=== PATIENT | male | born 1980 | race Two or more races ===

== ENCOUNTER 2019-03-25 00:22 | Emergency (ER) | payer SELFPAY | END 2019-03-25 02:30 | disposition left against medical advice (07) | LOC: ER 00:22 | DX: M25.511 Pain in right shoulder (principal); Z53.21 Procedure and treatment not carried out due to patient leaving prior to being seen by health care provider ==

== ENCOUNTER 2019-07-26 18:56 | Emergency (ER) | payer SELFPAY ==
[~2019-07-26] VITALS: Ht 177.8 cm; Wt 69.0 kg
[2019-07-26] MEDS ORDERED: KETOROLAC 60MG/2ML VIAL IM ONE (20:30)
[2019-07-26] MEDS ORDERED: TRAMADOL 50MG TABLET PO ONE (20:30)
[2019-07-26 21:30] VITALS: BP 114/56
== END 2019-07-26 23:30 | disposition home or self-care (01) ==
LOC: ER 18:56
DX: S39.82XA Other specified injuries of lower back, initial encounter (principal); F10.10 Alcohol abuse, uncomplicated; Y90.2 Blood alcohol level of 40-59 mg/100 ml; V03.10XA Pedestrian on foot injured in collision with car, pick-up truck or van in traffic accident, initial encounter; Y93.89 Activity, other specified; Y92.488 Other paved roadways as the place of occurrence of the external cause
CPT/HCPCS: 36415; 72220; 80320; 96372; 99284; J1885; Z7610; G0480

== ENCOUNTER 2021-03-12 21:41 | Emergency (ER) | payer OTHER ==
[~2021-03-12] VITALS: Ht 182.9 cm; Wt 91.0 kg
[~2021-03-12 21:41] MED LIST: AMLO5TAB88 MT
[2021-03-12 22:28] LABS: BASOPHILS % 0.6 % (0.0-2.0); HEMATOCRIT. 40.6 % (42.0-52.0); HEMOGLOBIN. 14.1 g/dL (14.0-18.0); LYMPHOCYTES % 22.9 % (20.0-50.0); MEAN CORPUSCULAR HEMOGLOBIN 31.7 pg (28.0-32.0); MEAN CORPUSCULAR VOLUME 91.3 fL (80.0-94.0); MEAN PLATELET VOLUME 7.9 fl (7.4-10.4); MONOCYTES % 10.2 % (2.0-8.0); NEUTROPHILS % 64.3 % (40.0-76.0); PLATELET 306 x1000/uL (130-400); RED BLOOD CELL COUNT 4.45 mill/uL (4.7-6.1); RED CELL DISTRIBUTION WIDTH 12.5 % (11.6-14.6)
[2021-03-12 22:36] LABS: CHLORIDE 103 mEq/L (98-107)
[2021-03-12 22:42] LABS: ETHANOL BLOOD < 10 mg/dL
[2021-03-12] MEDS ORDERED: HALOPERIDOL LACTATE 5MG/ML VIAL IM ONE (22:45)
[2021-03-12] MEDS ORDERED: LORAZEPAM 2MG/ML CPJ IM ONE (22:45)
[2021-03-13 03:29] VITALS: BP 127/72
[2021-03-13] MEDS ORDERED: IBUP-2028 MT (14:02)
== END 2021-03-13 04:59 | disposition home or self-care (01) ==
LOC: ER 21:41
DX: T50.991A Poisoning by other drugs, medicaments and biological substances, accidental (unintentional), initial encounter (principal); R00.0 Tachycardia, unspecified; R45.1 Restlessness and agitation; F15.10 Other stimulant abuse, uncomplicated; Z87.891 Personal history of nicotine dependence; Z79.899 Other long term (current) drug therapy; Y92.89 Other specified places as the place of occurrence of the external cause
CPT/HCPCS: 36415; 80053; 80307; 80320; 80329; 85025; 93005; 96372; 99285; J1630; J2060; G0480

== ENCOUNTER 2021-03-13 11:16 | Emergency (ER) | payer OTHER ==
[~2021-03-13] VITALS: Ht 185.4 cm; Wt 87.0 kg
[2021-03-13 12:11] LABS: BASOPHILS % 0.3 % (0.0-2.0); EOSINOPHILS % 1.9 % (0.0-5.0); HEMATOCRIT. 39.3 % (42.0-52.0); HEMOGLOBIN. 13.9 g/dL (14.0-18.0); LYMPHOCYTES % 21.2 % (20.0-50.0); MEAN CORPUSCULAR HEMOGLOBIN 32.1 pg (28.0-32.0); MEAN CORPUSCULAR VOLUME 90.7 fL (80.0-94.0); MEAN PLATELET VOLUME 7.9 fl (7.4-10.4); MONOCYTES % 8.9 % (2.0-8.0); NEUTROPHILS % 67.7 % (40.0-76.0); PLATELET 329 x1000/uL (130-400); RED BLOOD CELL COUNT 4.33 mill/uL (4.7-6.1); RED CELL DISTRIBUTION WIDTH 12.7 % (11.6-14.6)
[2021-03-13 12:13] LABS: CHLORIDE 106 mEq/L (98-107)
[2021-03-13 12:17] LABS: ETHANOL BLOOD < 10 mg/dL
[2021-03-13 12:24] LABS: CLARITY URINE CLEAR (CLEAR); COLOR URINE YELLOW (YELLOW); KETONES URINE TRACE (NEGATIVE); LEUKOCYTE ESTERASE URINE NEGATIVE (NEGATIVE); NITRITE URINE NEGATIVE (NEGATIVE); OCCULT BLOOD URINE NEGATIVE (NEGATIVE); PROTEIN URINE NEGATIVE (NEGATIVE); SPECIFIC GRAVITY URINE 1.024 (1.005-1.030); UROBILINOGEN URINE 0.2 E.U./dL (0.2-1.0)
[2021-03-13 12:35] LABS: *AMPHETAMINES SCREEN URINE PRESUMTIVE POSITIVE (NEGATIVE); *BARBITURATES SCREEN URINE NEGATIVE (NEGATIVE); *COCAINE SCREEN URINE NEGATIVE (NEGATIVE); CANNABINOID URINE SCREEN PRESUMTIVE POSITIVE (NEGATIVE); METHADONE URINE SCREEN NEGATIVE (NEGATIVE); OPIATES URINE SCREEN NEGATIVE (NEGATIVE); PHENCYCLIDINE URINE SCREEN PRESUMTIVE POSITIVE (NEGATIVE)
[2021-03-13 12:38] LABS: *BENZODIAZEPINES SCREEN URINE NEGATIVE (NEGATIVE)
[2021-03-13] MEDS ORDERED: IBUP-2028 MT (14:02)
[2021-03-13] MEDS ORDERED: IBUPROFEN 400MG TABLET PO ONE (14:15)
[2021-03-13 16:21] VITALS: BP 122/76
== END 2021-03-13 16:22 | disposition left against medical advice (07) ==
LOC: ER 11:16
DX: S60.512A Abrasion of left hand, initial encounter (principal); S60.511A Abrasion of right hand, initial encounter; F12.10 Cannabis abuse, uncomplicated; F15.10 Other stimulant abuse, uncomplicated; R07.89 Other chest pain; R00.0 Tachycardia, unspecified; F17.290 Nicotine dependence, other tobacco product, uncomplicated; Z59.0 Homelessness; Z79.899 Other long term (current) drug therapy; Y08.89XA Assault by other specified means, initial encounter; Y93.89 Activity, other specified; Y92.89 Other specified places as the place of occurrence of the external cause; Y99.8 Other external cause status
CPT/HCPCS: 36415; 71045; 80053; 80305; 80320; 81003; 85025; 93005; 99285; 99406; G0480

== ENCOUNTER 2021-03-13 18:33 | Emergency (ER) | payer OTHER ==
[~2021-03-13] VITALS: Ht 182.9 cm; Wt 79.0 kg
[~2021-03-13 18:33] MED LIST changes: +IBUP-2028 MT
[2021-03-13 18:34] VITALS: BP 148/103
== END 2021-03-13 18:40 | disposition home or self-care (01) ==
LOC: ER 18:33
DX: M79.18 Myalgia, other site (principal); F12.10 Cannabis abuse, uncomplicated; F15.10 Other stimulant abuse, uncomplicated; F32.9 Major depressive disorder, single episode, unspecified
CPT/HCPCS: 99283

== ENCOUNTER 2021-03-16 14:07 | Emergency (ER) | payer OTHER ==
[~2021-03-16] VITALS: Ht 180.3 cm; Wt 91.0 kg
[2021-03-16 14:09] VITALS: BP 142/78
== END 2021-03-16 14:24 | disposition home or self-care (01) ==
LOC: ER 14:07
DX: R53.1 Weakness (principal); R42 Dizziness and giddiness; Z86.59 Personal history of other mental and behavioral disorders
CPT/HCPCS: 99283

== ENCOUNTER 2021-03-28 16:08 | Emergency (ER) | payer OTHER ==
[~2021-03-28] VITALS: Ht 188 cm; Wt 100.0 kg
[2021-03-28] MEDS ORDERED: KETOROLAC 30MG/ML VIAL IV STA (17:42)
[2021-03-28] MEDS ORDERED: SODIUM CHLORIDE 0.9% 1,000 ML IV ONE (17:45)
[2021-03-28] MEDS ORDERED: LORAZEPAM 2MG/ML CPJ IM STA (18:07)
[2021-03-28 19:23] LABS: BASOPHILS % 1.1 % (0.0-2.0); EOSINOPHILS % 3.4 % (0.0-5.0); HEMATOCRIT. 40.6 % (42.0-52.0); HEMOGLOBIN. 13.9 g/dL (14.0-18.0); MEAN CORPUSCULAR HEMOGLOBIN 31.2 pg (28.0-32.0); MEAN CORPUSCULAR VOLUME 91.3 fL (80.0-94.0); MEAN PLATELET VOLUME 8.5 fl (7.4-10.4); MONOCYTES % 8.1 % (2.0-8.0); NEUTROPHILS % 58.4 % (40.0-76.0); PLATELET 310 x1000/uL (130-400); RED BLOOD CELL COUNT 4.45 mill/uL (4.7-6.1); RED CELL DISTRIBUTION WIDTH 12.9 % (11.6-14.6)
[2021-03-28 19:27] LABS: CHLORIDE 105 mEq/L (98-107)
[2021-03-28 19:31] LABS: ETHANOL BLOOD < 10 mg/dL
[2021-03-28] MEDS ORDERED: IOHEXOL-300 100 ML BOTTLE ONE (19:56)
[2021-03-28 20:50] LABS: *AMPHETAMINES SCREEN URINE PRESUMTIVE POSITIVE (NEGATIVE); *BARBITURATES SCREEN URINE NEGATIVE (NEGATIVE); *BENZODIAZEPINES SCREEN URINE NEGATIVE (NEGATIVE); *COCAINE SCREEN URINE NEGATIVE (NEGATIVE); CANNABINOID URINE SCREEN PRESUMTIVE POSITIVE (NEGATIVE); OPIATES URINE SCREEN NEGATIVE (NEGATIVE); PHENCYCLIDINE URINE SCREEN PRESUMTIVE POSITIVE (NEGATIVE)
[2021-03-28 20:51] LABS: METHADONE URINE SCREEN NEGATIVE (NEGATIVE)
[2021-03-29 02:00] VITALS: BP 141/79
== END 2021-03-29 02:48 | disposition short-term general hospital (02) ==
LOC: ER 16:08
DX: F10.129 Alcohol abuse with intoxication, unspecified (principal); F16.10 Hallucinogen abuse, uncomplicated; S32.038A Other fracture of third lumbar vertebra, initial encounter for closed fracture; S22.088 Other fracture of T11-T12 vertebra; Y90.0 Blood alcohol level of less than 20 mg/100 ml; F15.10 Other stimulant abuse, uncomplicated; Y04.2XXA Assault by strike against or bumped into by another person, initial encounter; Y93.89 Activity, other specified; Y92.89 Other specified places as the place of occurrence of the external cause
CPT/HCPCS: 36415; 70450; 70486; 71045; 71260; 74177; 80053; 80305; 80320; 83690; 85025; 93005; 96361; 96372; 96374; 99285; J1885; J2060; J7030; Q9967; Z7610; G0480

== ENCOUNTER 2021-06-11 04:46 | Emergency (ER) | payer OTHER | END 2021-06-11 05:42 | disposition left against medical advice (07) | LOC: ER 04:46 | DX: Z53.21 Procedure and treatment not carried out due to patient leaving prior to being seen by health care provider (principal) ==

== ENCOUNTER 2021-07-04 02:08 | Emergency (ER) | payer OTHER ==
[~2021-07-04] VITALS: Ht 175.3 cm; Wt 81.0 kg
[2021-07-04] MEDS ORDERED: TETANUS, DIPHTHERIA, PERTUSSIS VAC/PF 0.5ML (>10YR OLD) IM ONE (02:45)
[2021-07-04] MEDS ORDERED: BACITRACIN ZINC OINT UDPKT TOP ONE (02:45)
[2021-07-04] MEDS ORDERED: LIDOCAINE HCL/EPINEPHRINE 1%-EPI 1:100,000 20 ML VIAL INFIL ONE (02:45)
[2021-07-04] MEDS ORDERED: IBUPROFEN 600MG TABLET PO ONE (02:45)
[2021-07-04] MEDS ORDERED: IBUP-2030 MT (05:11)
[2021-07-04 05:31] VITALS: BP 135/89
== END 2021-07-04 06:05 | disposition home or self-care (01) ==
LOC: ER 02:08
DX: S02.40FA Zygomatic fracture, left side, initial encounter for closed fracture (principal); S02.831A Fracture of medial orbital wall, right side, initial encounter for closed fracture; S02.31XA Fracture of orbital floor, right side, initial encounter for closed fracture; S41.111A Laceration without foreign body of right upper arm, initial encounter; M54.2 Cervicalgia; M26.602 Left temporomandibular joint disorder, unspecified; F10.129 Alcohol abuse with intoxication, unspecified; Y90.9 Presence of alcohol in blood, level not specified; Y04.2XXA Assault by strike against or bumped into by another person, initial encounter; X99.8XXA Assault by other sharp object, initial encounter; Y93.89 Activity, other specified; Y92.89 Other specified places as the place of occurrence of the external cause
CPT/HCPCS: 12002; 70450; 70486; 72125; 90471; 90715; 99285; J3490

== ENCOUNTER 2021-08-25 11:47 | Emergency (ER) | payer OTHER ==
[~2021-08-25] VITALS: Ht 182.9 cm; Wt 80.0 kg
[~2021-08-25 11:47] MED LIST changes: +IBUP-2030 MT
[2021-08-25 11:50] VITALS: BP 152/96
[2021-08-25 12:56] LABS: BASOPHILS % 0.4 % (0.0-2.0); EOSINOPHILS % 1.3 % (0.0-5.0); HEMATOCRIT. 38.9 % (42.0-52.0); HEMOGLOBIN. 13.2 g/dL (14.0-18.0); MEAN CORPUSCULAR HEMOGLOBIN 29.2 pg (28.0-32.0); MEAN CORPUSCULAR VOLUME 86.1 fL (80.0-94.0); MEAN PLATELET VOLUME 8.5 fl (7.4-10.4); MONOCYTES % 10.3 % (2.0-8.0); PLATELET 291 x1000/uL (130-400); RED BLOOD CELL COUNT 4.52 mill/uL (4.7-6.1)
[2021-08-25 12:57] LABS: CHLORIDE 105 mEq/L (98-107)
[2021-08-25 13:03] LABS: ETHANOL BLOOD < 10 mg/dL
[2021-08-25] MEDS ORDERED: SODIUM CHLORIDE 0.9% 1,000 ML IV ONE (14:00)
== END 2021-08-25 15:47 | disposition home or self-care (01) ==
LOC: ER 11:50
DX: T50.901A Poisoning by unspecified drugs, medicaments and biological substances, accidental (unintentional), initial encounter (principal); G92.8 Other toxic encephalopathy; F32.A Depression, unspecified; Y92.89 Other specified places as the place of occurrence of the external cause
CPT/HCPCS: 36415; 80053; 80307; 80320; 80329; 85025; 93005; 99284; G0480

== ENCOUNTER 2021-08-26 02:04 | Emergency (ER) | payer OTHER ==
[~2021-08-26] VITALS: Ht 175.3 cm; Wt 85.0 kg
[2021-08-26 02:07] VITALS: BP 142/86
== END 2021-08-26 02:27 | disposition home or self-care (01) ==
LOC: ER 02:04
DX: Z13.9 Encounter for screening, unspecified (principal)
CPT/HCPCS: 99283

== ENCOUNTER 2021-08-29 22:57 | Emergency (ER) | payer OTHER ==
[~2021-08-29] VITALS: Ht 175.3 cm; Wt 75.0 kg
[2021-08-29 23:06] VITALS: BP 114/70
[2021-08-29] MEDS ORDERED: IBUPROFEN 600MG TABLET PO STA (23:13)
== END 2021-08-30 03:54 | disposition left against medical advice (07) ==
LOC: ER 22:57
DX: R07.89 Other chest pain (principal); I10 Essential (primary) hypertension; F32.9 Major depressive disorder, single episode, unspecified
CPT/HCPCS: 93005; 99283

== ENCOUNTER 2021-08-30 05:20 | Emergency (ER) | payer OTHER ==
[~2021-08-30] VITALS: Ht 172.7 cm; Wt 70.0 kg
[2021-08-30 05:23] VITALS: BP 130/70
== END 2021-08-30 06:58 | disposition left against medical advice (07) ==
LOC: ER 05:20
DX: Z53.21 Procedure and treatment not carried out due to patient leaving prior to being seen by health care provider (principal); I49.9 Cardiac arrhythmia, unspecified
CPT/HCPCS: 93005

== ENCOUNTER 2021-09-01 20:03 | Emergency (ER) | payer OTHER ==
[~2021-09-01] VITALS: Ht 188 cm; Wt 82.0 kg
[2021-09-01 20:24] VITALS: BP 162/98
== END 2021-09-01 22:18 | disposition left against medical advice (07) ==
LOC: ER 20:03
DX: Z53.21 Procedure and treatment not carried out due to patient leaving prior to being seen by health care provider (principal); F10.129 Alcohol abuse with intoxication, unspecified; Y90.9 Presence of alcohol in blood, level not specified

== ENCOUNTER 2021-09-02 01:40 | Emergency (ER) | payer MEDICAID, OTHER ==
[~2021-09-02] VITALS: Ht 185.4 cm; Wt 77.0 kg
[2021-09-02] MEDS ORDERED: LORAZEPAM 2MG/ML CPJ IM STA (02:23)
[2021-09-02] MEDS ORDERED: OLANZAPINE 10 MG/VIAL IM ONE (02:30)
[2021-09-02 04:33] LABS: BASOPHILS % 0.6 % (0.0-2.0); EOSINOPHILS % 1.9 % (0.0-5.0); HEMATOCRIT. 38.2 % (42.0-52.0); HEMOGLOBIN. 12.9 g/dL (14.0-18.0); LYMPHOCYTES % 25.8 % (20.0-50.0); MEAN CORPUSCULAR HEMOGLOBIN 29.8 pg (28.0-32.0); MEAN CORPUSCULAR VOLUME 88.4 fL (80.0-94.0); MEAN PLATELET VOLUME 7.8 fl (7.4-10.4); MONOCYTES % 7.1 % (2.0-8.0); NEUTROPHILS % 64.6 % (40.0-76.0); PLATELET 344 x1000/uL (130-400); RED BLOOD CELL COUNT 4.32 mill/uL (4.7-6.1); RED CELL DISTRIBUTION WIDTH 13.3 % (11.6-14.6)
[2021-09-02 04:47] LABS: CHLORIDE 106 mEq/L (98-107)
[2021-09-02 04:51] LABS: ETHANOL BLOOD < 10 mg/dL
[2021-09-02 06:50] LABS: CLARITY URINE CLEAR (CLEAR); COLOR URINE YELLOW (YELLOW); KETONES URINE NEGATIVE (NEGATIVE); LEUKOCYTE ESTERASE URINE NEGATIVE (NEGATIVE); NITRITE URINE NEGATIVE (NEGATIVE); OCCULT BLOOD URINE NEGATIVE (NEGATIVE); PH URINE 5.5 (4.5-8.0); PROTEIN URINE NEGATIVE (NEGATIVE); SPECIFIC GRAVITY URINE 1.012 (1.005-1.030); UROBILINOGEN URINE 0.2 E.U./dL (0.2-1.0)
[2021-09-02 06:59] LABS: *AMPHETAMINES SCREEN URINE PRESUMTIVE POSITIVE (NEGATIVE); *BARBITURATES SCREEN URINE NEGATIVE (NEGATIVE); *BENZODIAZEPINES SCREEN URINE NEGATIVE (NEGATIVE); *COCAINE SCREEN URINE NEGATIVE (NEGATIVE); METHADONE URINE SCREEN NEGATIVE (NEGATIVE)
[2021-09-02 07:00] LABS: CANNABINOID URINE SCREEN PRESUMTIVE POSITIVE (NEGATIVE); OPIATES URINE SCREEN NEGATIVE (NEGATIVE); PHENCYCLIDINE URINE SCREEN PRESUMTIVE POSITIVE (NEGATIVE)
[2021-09-02] MEDS: RISPERIDONE 1MG TABLET PO SCH ×2 (21:00→23:10)
[2021-09-02] MEDS ORDERED: LORAZEPAM 0.5MG TABLET PO ONE (23:00)
[2021-09-02] MEDS ORDERED: HALOPERIDOL 5MG TABLET PO ONE (23:00)
[2021-09-03] MEDS ORDERED: HALOPERIDOL LACTATE 5MG/ML VIAL IM ONE (00:15)
[2021-09-03] MEDS ORDERED: LORAZEPAM 2MG/ML CPJ IM ONE (00:15)
[2021-09-03] MEDS ORDERED: LORAZEPAM 1MG TABLET PO PRN (10:15)
[2021-09-03] MEDS ORDERED: HALOPERIDOL 5MG TABLET PO PRN (10:15)
[2021-09-03 20:45] VITALS: BP 129/70
== END 2021-09-03 21:00 | disposition home or self-care (01) ==
LOC: ER 01:40
DX: F29 Unspecified psychosis not due to a substance or known physiological condition (principal); Z20.822 Contact with and (suspected) exposure to COVID-19
CPT/HCPCS: 36415; 80053; 80305; 80307; 80320; 80329; 81003; 85025; 96372; 99285; C9803; J1630; J2060; J3490; U0003; U0005; G0480

== ENCOUNTER 2021-09-04 03:51 | Emergency (ER) | payer MEDICAID ==
[~2021-09-04] VITALS: Ht 182.9 cm; Wt 87.0 kg
[2021-09-04 03:54] VITALS: BP 141/72
[2021-09-04 04:40] LABS: BASOPHILS % 1.1 % (0.0-2.0); EOSINOPHILS % 4.8 % (0.0-5.0); HEMATOCRIT. 39.8 % (42.0-52.0); HEMOGLOBIN. 13.4 g/dL (14.0-18.0); LYMPHOCYTES % 31.4 % (20.0-50.0); MEAN CORPUSCULAR HEMOGLOBIN 29.4 pg (28.0-32.0); MEAN CORPUSCULAR VOLUME 87.5 fL (80.0-94.0); MONOCYTES % 7.9 % (2.0-8.0); NEUTROPHILS % 54.8 % (40.0-76.0); PLATELET 336 x1000/uL (130-400); RED BLOOD CELL COUNT 4.55 mill/uL (4.7-6.1); RED CELL DISTRIBUTION WIDTH 13.3 % (11.6-14.6)
[2021-09-04 04:48] LABS: CHLORIDE 103 mEq/L (98-107)
== END 2021-09-04 06:09 | disposition left against medical advice (07) ==
LOC: ER 03:51
DX: R07.89 Other chest pain (principal)
CPT/HCPCS: 36415; 80053; 83880; 84484; 85025; 93005; 99284

== ENCOUNTER 2021-09-06 15:32 | Emergency (ER) | payer MEDICAID ==
[~2021-09-06] VITALS: Ht 175.3 cm; Wt 76.0 kg
[2021-09-06 15:33] VITALS: BP 157/93
[2021-09-06] MEDS ORDERED: ONDANSETRON HCL 4MG/2ML INJ IV STA (15:56)
[2021-09-06] MEDS ORDERED: FOLIC ACID 1 MG, THIAMINE HCL 100 MG, MVI, ADULT NO.1 10 ML in DEXTROSE 5% WATER 1,000 ML IV ONE (16:00)
[2021-09-06] MEDS ORDERED: SODIUM CHLORIDE 0.9% 1,000 ML IV ONE (16:00)
[2021-09-06 16:35] LABS: BASOPHILS % 0.7 % (0.0-2.0); EOSINOPHILS % 3.2 % (0.0-5.0); HEMATOCRIT. 38.7 % (42.0-52.0); LYMPHOCYTES % 24.3 % (20.0-50.0); MEAN CORPUSCULAR HEMOGLOBIN 29.5 pg (28.0-32.0); MONOCYTES % 10.2 % (2.0-8.0); NEUTROPHILS % 61.6 % (40.0-76.0); PLATELET 292 x1000/uL (130-400); RED CELL DISTRIBUTION WIDTH 13.7 % (11.6-14.6)
[2021-09-06 16:38] LABS: CHLORIDE 107 mEq/L (98-107)
[2021-09-06 16:44] LABS: ETHANOL BLOOD 18 mg/dL
== END 2021-09-06 17:11 | disposition left against medical advice (07) ==
LOC: ER 15:32
DX: F10.129 Alcohol abuse with intoxication, unspecified (principal); F17.290 Nicotine dependence, other tobacco product, uncomplicated; F12.10 Cannabis abuse, uncomplicated; I49.9 Cardiac arrhythmia, unspecified; Z13.9 Encounter for screening, unspecified; Y90.0 Blood alcohol level of less than 20 mg/100 ml
CPT/HCPCS: 36415; 80053; 80307; 80320; 80329; 85025; 93005; 99284; 99406; J3411; J3490; J7030; J7070; G0480

== ENCOUNTER 2021-09-08 18:44 | Emergency (ER) | payer MEDICAID ==
[~2021-09-08] VITALS: Ht 182.9 cm; Wt 82.0 kg
[2021-09-08 19:50] VITALS: BP 160/94
== END 2021-09-08 19:52 | disposition home or self-care (01) ==
LOC: ER 18:44
DX: F15.159 Other stimulant abuse with stimulant-induced psychotic disorder, unspecified (principal); F15.180 Other stimulant abuse with stimulant-induced anxiety disorder; R03.0 Elevated blood-pressure reading, without diagnosis of hypertension; F12.90 Cannabis use, unspecified, uncomplicated; F10.20 Alcohol dependence, uncomplicated; Y90.9 Presence of alcohol in blood, level not specified; Z59.02 Unsheltered homelessness
CPT/HCPCS: 99283

== ENCOUNTER 2021-09-09 13:56 | Emergency (ER) | payer MEDICAID ==
[~2021-09-09] VITALS: Ht 185.4 cm; Wt 91.0 kg
[2021-09-09] MEDS ORDERED: SODIUM CHLORIDE 0.9% 1,000 ML IV ONE (14:30)
[2021-09-09 14:47] LABS: BASOPHILS % 0.9 % (0.0-2.0); EOSINOPHILS % 2.3 % (0.0-5.0); HEMATOCRIT. 36.9 % (42.0-52.0); HEMOGLOBIN. 12.5 g/dL (14.0-18.0); LYMPHOCYTES % 26.1 % (20.0-50.0); MEAN CORPUSCULAR HEMOGLOBIN 30.1 pg (28.0-32.0); MEAN CORPUSCULAR VOLUME 89.2 fL (80.0-94.0); MONOCYTES % 9.3 % (2.0-8.0); NEUTROPHILS % 61.4 % (40.0-76.0); PLATELET 217 x1000/uL (130-400); RED BLOOD CELL COUNT 4.14 mill/uL (4.7-6.1); RED CELL DISTRIBUTION WIDTH 13.6 % (11.6-14.6)
[2021-09-09 14:54] LABS: CHLORIDE 104 mEq/L (98-107)
[2021-09-09 14:58] LABS: ETHANOL BLOOD 11 mg/dL
[2021-09-09 17:02] LABS: CLARITY URINE CLEAR (CLEAR); COLOR URINE YELLOW (YELLOW); KETONES URINE NEGATIVE (NEGATIVE); LEUKOCYTE ESTERASE URINE NEGATIVE (NEGATIVE); NITRITE URINE NEGATIVE (NEGATIVE); OCCULT BLOOD URINE NEGATIVE (NEGATIVE); PH URINE 5.5 (4.5-8.0); PROTEIN URINE NEGATIVE (NEGATIVE); SPECIFIC GRAVITY URINE 1.011 (1.005-1.030); UROBILINOGEN URINE 0.2 E.U./dL (0.2-1.0)
[2021-09-09 17:11] LABS: *AMPHETAMINES SCREEN URINE PRESUMTIVE POSITIVE (NEGATIVE); *BARBITURATES SCREEN URINE NEGATIVE (NEGATIVE); *BENZODIAZEPINES SCREEN URINE NEGATIVE (NEGATIVE); *COCAINE SCREEN URINE NEGATIVE (NEGATIVE)
[2021-09-09 17:12] LABS: METHADONE URINE SCREEN NEGATIVE (NEGATIVE); OPIATES URINE SCREEN NEGATIVE (NEGATIVE); PHENCYCLIDINE URINE SCREEN PRESUMTIVE POSITIVE (NEGATIVE)
[2021-09-09 17:14] LABS: CANNABINOID URINE SCREEN NEGATIVE (NEGATIVE)
[2021-09-09 17:45] VITALS: BP 163/94
== END 2021-09-09 18:31 | disposition home or self-care (01) ==
LOC: ER 14:04
DX: G93.40 Encephalopathy, unspecified (principal); F19.10 Other psychoactive substance abuse, uncomplicated; Z98.890 Other specified postprocedural states
CPT/HCPCS: 36415; 80053; 80305; 80320; 81003; 85025; 96360; 99283; J7030; Z7610; G0480

== ENCOUNTER 2021-09-09 18:27 | Emergency (ER) | payer MEDICAID ==
[~2021-09-09] VITALS: Ht 193 cm; Wt 84.0 kg
[2021-09-09 18:30] VITALS: BP 164/95
== END 2021-09-09 19:27 | disposition left against medical advice (07) ==
LOC: ER 18:27
DX: G92.9 Unspecified toxic encephalopathy (principal); F15.10 Other stimulant abuse, uncomplicated; F19.10 Other psychoactive substance abuse, uncomplicated; F12.10 Cannabis abuse, uncomplicated; F10.229 Alcohol dependence with intoxication, unspecified; Y90.0 Blood alcohol level of less than 20 mg/100 ml
CPT/HCPCS: 99283

== ENCOUNTER 2022-03-17 02:37 | Emergency (ER) | payer MEDICAID, OTHER ==
[~2022-03-17] VITALS: Ht 177.8 cm; Wt 73.0 kg
[2022-03-17] MEDS ORDERED: IBUPROFEN 400MG TABLET PO ONE (03:30)
[2022-03-17 04:00] LABS: BASOPHILS % 0.6 % (0.0-2.0); EOSINOPHILS % 2.9 % (0.0-5.0); HEMATOCRIT. 36.4 % (42.0-52.0); HEMOGLOBIN. 12.2 g/dL (14.0-18.0); LYMPHOCYTES % 26.6 % (20.0-50.0); MEAN CORPUSCULAR HEMOGLOBIN 28.9 pg (28.0-32.0); MEAN CORPUSCULAR VOLUME 86.3 fL (80.0-94.0); MEAN PLATELET VOLUME 8.3 fl (7.4-10.4); MONOCYTES % 6.7 % (2.0-8.0); NEUTROPHILS % 63.2 % (40.0-76.0); PLATELET 301 x1000/uL (130-400); RED BLOOD CELL COUNT 4.22 mill/uL (4.7-6.1); RED CELL DISTRIBUTION WIDTH 13.3 % (11.6-14.6)
[2022-03-17 04:09] LABS: CHLORIDE 105 mEq/L (98-107)
[2022-03-17 04:16] LABS: ETHANOL BLOOD 28 mg/dL
[2022-03-17 04:48] LABS: CLARITY URINE CLOUDY (CLEAR); COLOR URINE YELLOW (YELLOW); KETONES URINE TRACE (NEGATIVE); LEUKOCYTE ESTERASE URINE NEGATIVE (NEGATIVE); NITRITE URINE NEGATIVE (NEGATIVE); OCCULT BLOOD URINE NEGATIVE (NEGATIVE); PROTEIN URINE TRACE (NEGATIVE); SPECIFIC GRAVITY URINE 1.027 (1.005-1.030)
[2022-03-17 04:59] LABS: *AMPHETAMINES SCREEN URINE NEGATIVE (NEGATIVE); *BARBITURATES SCREEN URINE NEGATIVE (NEGATIVE); *BENZODIAZEPINES SCREEN URINE NEGATIVE (NEGATIVE); *COCAINE SCREEN URINE PRESUMTIVE POSITIVE (NEGATIVE); CANNABINOID URINE SCREEN NEGATIVE (NEGATIVE); METHADONE URINE SCREEN NEGATIVE (NEGATIVE); OPIATES URINE SCREEN NEGATIVE (NEGATIVE); PHENCYCLIDINE URINE SCREEN PRESUMTIVE POSITIVE (NEGATIVE)
[2022-03-17] MEDS: RISPERIDONE 1MG TABLET PO SCH ×2 (09:00→21:00)
[2022-03-17] MEDS: FLUOXETINE HCL 10 MG CAPSULE PO SCH (09:00)
[2022-03-18] MEDS: RISPERIDONE 1MG TABLET PO SCH (08:31)
[2022-03-18] MEDS: FLUOXETINE HCL 10 MG CAPSULE PO SCH (08:31)
[2022-03-18 11:10] VITALS: BP 124/77
== END 2022-03-18 11:33 | disposition home or self-care (01) ==
LOC: ER 02:37
DX: R45.851 Suicidal ideations (principal); F33.1 Major depressive disorder, recurrent, moderate; T40.5X1A Poisoning by cocaine, accidental (unintentional), initial encounter; F14.129 Cocaine abuse with intoxication, unspecified; S82.441A Displaced spiral fracture of shaft of right fibula, initial encounter for closed fracture; T40.991A Poisoning by other psychodysleptics [hallucinogens], accidental (unintentional), initial encounter; F10.20 Alcohol dependence, uncomplicated; Y90.0 Blood alcohol level of less than 20 mg/100 ml; F16.129 Hallucinogen abuse with intoxication, unspecified; X58.XXXA Exposure to other specified factors, initial encounter; Z20.822 Contact with and (suspected) exposure to COVID-19; Y93.89 Activity, other specified; Y92.89 Other specified places as the place of occurrence of the external cause
CPT/HCPCS: 29505; 36415; 73610; 80053; 80305; 80307; 80320; 80329; 81003; 85025; 87426; 93971; 99285; C9803; U0003; U0005; G0480